=== PATIENT | female | born 1960 | race Caucasian/White ===

== ENCOUNTER 2017-06-14 12:36 | Day surgery (SDC) | payer BC ==
[~2017-06-14] VITALS: Ht 157.5 cm; Wt 96.2 kg
[~2017-06-14 12:36] MED LIST: AMITRIPTYLIN50 MG PO; BUT/APAP/CAF PO; LISINOP/HCTZ1 TA2 PO; PANTOPRAZOLE SO40 M1 PO; PRILOSEC20 MG PO; SUPER B COM2 PO; VITAMIN D3400 UNI2 PO
[2017-06-14 17:51] VITALS: BP 131/74
== END 2017-06-14 16:19 | disposition home or self-care (01) | DRG 391 ==
LOC: ENDO 12:36 → ORM 13:45 → ENDO 13:45 → ORM 15:45 → ENDO 15:45
PROVIDERS: ATTEND Internal Medicine Gastroenterology
PROC: 0DB48ZX Excision of Esophagogastric Junction, Via Natural or Artificial Opening Endoscopic, Diagnostic (ICD-10-PCS; principal; 2017-06-14)
PROC: 0DB68ZX Excision of Stomach, Via Natural or Artificial Opening Endoscopic, Diagnostic (ICD-10-PCS; 2017-06-14)
PROC: 0DB58ZX Excision of Esophagus, Via Natural or Artificial Opening Endoscopic, Diagnostic (ICD-10-PCS; 2017-06-14)
PROC: 0D758ZZ Dilation of Esophagus, Via Natural or Artificial Opening Endoscopic (ICD-10-PCS; 2017-06-14)
DX: K21.0 Gastro-esophageal reflux disease with esophagitis (principal); K29.71 Gastritis, unspecified, with bleeding; K22.2 Esophageal obstruction; K22.8 Other specified diseases of esophagus; K31.7 Polyp of stomach and duodenum; I10 Essential (primary) hypertension; F32.9 Major depressive disorder, single episode, unspecified; K44.9 Diaphragmatic hernia without obstruction or gangrene

== ENCOUNTER 2021-02-09 07:44 | Day surgery (SDC) | payer MEDICARE, MEDICAID ==
[~2021-02-09] VITALS: Ht 160 cm; Wt 109.8 kg
[~2021-02-09 07:44] MED LIST changes: +ACETAMINOPHEN500 M1 PO; +ALBUTEROL SUL0.083 % IN; +ALPRAZOLAM0.25 MG PO; +BACLOFEN10 MG PO; +BENZONATATE200 MG PO; +CRESTOR5 M1; +FAMOTIDINE20 M1 PO; +KETOCONAZOLE2 % EX; +METAMUCIL0.36 GM; +SENNA-TABS8.6 MG PO; +SERTRALINE25 MG PO; +SPIRIVA RE1.25 MCG/A IN; +ZANTAC 150 PO
[2021-02-09 09:55] VITALS: BP 140/66
== END 2021-02-09 10:50 | disposition home or self-care (01) ==
LOC: ENDO 07:44 → ORM 08:00 → ENDO 10:50
PROVIDERS: ATTEND Surgery
PROC: 0DJD8ZZ Inspection of Lower Intestinal Tract, Via Natural or Artificial Opening Endoscopic (ICD-10-PCS; principal; 2021-02-09)
PROC: 0DJ08ZZ Inspection of Upper Intestinal Tract, Via Natural or Artificial Opening Endoscopic (ICD-10-PCS; 2021-02-09)
DX: Z12.11 Encounter for screening for malignant neoplasm of colon (principal); K57.30 Diverticulosis of large intestine without perforation or abscess without bleeding; K21.00 Gastro-esophageal reflux disease with esophagitis, without bleeding; K44.9 Diaphragmatic hernia without obstruction or gangrene; I10 Essential (primary) hypertension; G80.9 Cerebral palsy, unspecified
CPT/HCPCS: 43235; G0121

== ENCOUNTER 2021-03-09 09:31 | Observation (INO) | payer MEDICARE, MEDICAID ==
[2021-03-09] VITALS (8 sets, daily range): BP systolic 107–137; BP diastolic 53–71
[~2021-03-09] VITALS: Ht 157.5 cm; Wt 108.9 kg
[~2021-03-09 09:31] MED LIST changes: +AMITRIPTYLINE H75 M1 PO; +AMLODIPINE BESY10 MG PO; +DOK100 MG PO; +EZALLOR SPRINKLE5 MG PO; +LISINOP/HCTZ1 TAB PO; +METAMUCIL0.52 G2 PO; +VITAMIN B COMPL1 TAB PO
[2021-03-09] MEDS ORDERED: SYMBICORT1 AE1 IN (10:46)
[2021-03-09 16:35] LABS: HEMATOCRIT 38.5 % (37.0-47.0); HEMOGLOBIN 12.7 g/dl (12.0-16.0); IMMATURE GRANULOCYTES 0.1 % (0.0-5.0); MEAN CELL VOLUME 94.8 fL CALC (80.0-100.0); MEAN CORPUSCULAR HGB 31.3 pG CALC (26.0-32.0); NEUT# 12.95 thou/uL (2.00-7.15); RED BLOOD COUNT 4.06 mill/uL (4.20-5.60); RED CELL DISTRI WIDTH 13.6 % (11.5-15.5)
[2021-03-09 16:41] LABS: ANION GAP 7 (6-22 (CALC)); BUN 10 mg/dL (8-23); BUN/CREATININE RATIO 13 (12-20 (CALC)); CARBON DIOXIDE 30 mmol/l (22-30); CHLORIDE 103 mmol/l (95-108); CREATININE 0.8 mg/dL (0.5-1.0); GFR > 60 ML/MIN (>=60 (CALC)); GFR FOR AFR.AMER. > 60 ML/MIN (>=60 (CALC)); POTASSIUM 3.4 mmol/l (3.5-5.1); SODIUM 137 mmol/l (137-146)
[2021-03-10] VITALS: BP 79/47
[2021-03-10 04:00] VITALS: BP 113/69
[2021-03-10 07:12] VITALS: BP 106/63
[2021-03-10 15:14] VITALS: BP 108/52
[2021-03-10 19:00] VITALS: BP 127/68
[2021-03-11 04:00] VITALS: BP 137/70
[2021-03-11 07:30] VITALS: BP 138/75
[2021-03-11 08:24] VITALS: BP 138/75
[2021-03-11] MEDS ORDERED: TRAMADOL HCL50 MG PO (10:27)
== END 2021-03-11 12:30 ==
LOC: ORM 09:31 → MS2 13:18
PROVIDERS: Nurse Practitioner; ADMIT Surgery; ATTEND Internal Medicine
PROC: 0DV44ZZ Restriction of Esophagogastric Junction, Percutaneous Endoscopic Approach (ICD-10-PCS; principal; 2021-03-09)
PROC: 0BQT4ZZ Repair Diaphragm, Percutaneous Endoscopic Approach (ICD-10-PCS; 2021-03-09)
DX: K44.9 Diaphragmatic hernia without obstruction or gangrene (principal); M79.5 Residual foreign body in soft tissue; I10 Essential (primary) hypertension; G80.9 Cerebral palsy, unspecified; K21.9 Gastro-esophageal reflux disease without esophagitis; R41.3 Other amnesia; F32.A Depression, unspecified; E78.2 Mixed hyperlipidemia; E66.01 Morbid (severe) obesity due to excess calories; Z68.41 Body mass index [BMI] 40.0-44.9, adult
CPT/HCPCS: J1650; J2710

== ENCOUNTER 2021-03-28 18:34 | Observation (INO) | payer MEDICARE, MEDICAID ==
[~2021-03-28] VITALS: Ht 157.5 cm; Wt 107.1 kg
[~2021-03-28 18:34] MED LIST changes: +SYMBICORT1 AE1 IN; +TRAMADOL HCL50 MG PO
[2021-03-28 19:07] LABS: HEMATOCRIT 40.2 % (37.0-47.0); HEMOGLOBIN 13.3 g/dl (12.0-16.0); IMMATURE GRANULOCYTES 0.1 % (0.0-5.0); MEAN CELL VOLUME 93.5 fL CALC (80.0-100.0); MEAN CORPUSCULAR HGB 30.9 pG CALC (26.0-32.0); MEAN CORPUSCULAR HGB CONC 33.1 g/dL CAL (32.0-36.0); NEUT# 3.41 thou/uL (2.00-7.15); RED BLOOD COUNT 4.3 mill/uL (4.20-5.60); RED CELL DISTRI WIDTH 13.7 % (11.5-15.5)
[2021-03-28 19:17] LABS: ALKALINE PHOSPHATASE 86 u/l (38-126); AMYLASE 53 u/l (30-110); ANION GAP 10 (6-22 (CALC)); BILIRUBIN, TOTAL 0.5 mg/dL (0.0-1.4); BUN 16 mg/dL (8-23); BUN/CREATININE RATIO 15 (12-20 (CALC)); CARBON DIOXIDE 29 mmol/l (22-30); CHLORIDE 101 mmol/l (95-108); GFR 56 ML/MIN (>=60 (CALC)); GFR FOR AFR.AMER. > 60 ML/MIN (>=60 (CALC)); LIPASE 55 u/l (23-300); POTASSIUM 3.3 mmol/l (3.5-5.1); SGOT/AST 35 u/l (9-36); SODIUM 137 mmol/l (137-146); TOTAL PROTEIN 6.9 g/dL (6.3-8.2)
[2021-03-28 19:29] LABS: MYOGLOBIN 31 ng/mL (0 - 62)
[2021-03-28 20:15] LABS: URINE BILIRUBIN - DIPSTICK NEGATIVE (NEGATIVE); URINE BLOOD DIPSTICK NEGATIVE (NEGATIVE); URINE COLOR YELLOW; URINE GLUCOSE - DIPSTICK NEGATIVE (NEGATIVE); URINE KETONE NEGATIVE (NEGATIVE); URINE LEUK ESTERASE TRACE (NEGATIVE); URINE PH 5.5 (4.5-8.0); URINE PROTEIN - DIPSTICK NEGATIVE (NEG-TRACE); URINE SPECIFIC GRAVITY >=1.030; URINE UROBILINOGEN - DIPSTICK 0.2 E.U./dL (0.2)
[2021-03-28 20:17] LABS: URINE NITRITE - DIPSTICK NEGATIVE (Negative)
[2021-03-28 21:30] VITALS: BP 112/68
[2021-03-29] VITALS: BP 108/59
[2021-03-29 04:00] VITALS: BP 112/70
[2021-03-29 06:14] LABS: ANION GAP 9 (6-22 (CALC)); BUN 13 mg/dL (8-23); BUN/CREATININE RATIO 15 (12-20 (CALC)); CALCULATED LDLCHOLESTEROL 56 mg/dL (62-129 (CALC)); CARBON DIOXIDE 28 mmol/l (22-30); CHLORIDE 104 mmol/l (95-108); CREATININE 0.9 mg/dL (0.5-1.0); GFR > 60 ML/MIN (>=60 (CALC)); GFR FOR AFR.AMER. > 60 ML/MIN (>=60 (CALC)); HDL CHOLESTEROL 42 mg/dL (>=40); MAGNESIUM 2.2 mg/dL (1.6-2.3); POTASSIUM 3.3 mmol/l (3.5-5.1); SODIUM 138 mmol/l (137-146); TOTAL CHOLESTEROL 127 mg/dl (0-199); TOTAL TRIGLYCERIDES 142 mg/dl (30-149); VLDL CHOLESTROL 28 mg/dl (1-41 (CALC))
[2021-03-29 06:15] LABS: HEMATOCRIT 37.8 % (37.0-47.0); HEMOGLOBIN 12.7 g/dl (12.0-16.0); MEAN CELL VOLUME 92.6 fL CALC (80.0-100.0); MEAN CORPUSCULAR HGB 31.1 pG CALC (26.0-32.0); MEAN CORPUSCULAR HGB CONC 33.6 g/dL CAL (32.0-36.0); RED BLOOD COUNT 4.08 mill/uL (4.20-5.60); RED CELL DISTRI WIDTH 13.5 % (11.5-15.5)
[2021-03-29] MEDS ORDERED: CRESTOR5 M1 PO (07:13)
[2021-03-29 08:18] VITALS: BP 115/71
[2021-03-29 10:29] VITALS: BP 118/71
[2021-03-29 14:15] VITALS: BP 118/71
== END 2021-03-29 12:53 ==
LOC: ED 18:34 → MS2 20:27
PROVIDERS: Family Medicine; ADMIT Hospitalist; ATTEND Hospitalist
DX: R07.9 Chest pain, unspecified (principal); R11.2 Nausea with vomiting, unspecified; I10 Essential (primary) hypertension; G80.9 Cerebral palsy, unspecified; K21.9 Gastro-esophageal reflux disease without esophagitis; K44.9 Diaphragmatic hernia without obstruction or gangrene; F32.A Depression, unspecified; E78.2 Mixed hyperlipidemia; E66.01 Morbid (severe) obesity due to excess calories; Z68.41 Body mass index [BMI] 40.0-44.9, adult; Z20.822 Contact with and (suspected) exposure to COVID-19

== ENCOUNTER 2021-10-21 10:24 | Emergency (ER) | payer MEDICARE, MEDICAID ==
[~2021-10-21] VITALS: Ht 157.5 cm; Wt 115.0 kg
[~2021-10-21 10:24] MED LIST changes: +CRESTOR5 M1 PO
[2021-10-21 10:34] VITALS: BP 143/78
[2021-10-21 10:46] VITALS: BP 88/72
[2021-10-21 10:48] VITALS: BP 123/64
[2021-10-21 12:12] VITALS: BP 115/66
[2021-10-21 12:30] VITALS: BP 110/67
[2021-10-21 12:39] VITALS: BP 110/67
== END 2021-10-21 12:48 | disposition home or self-care (01) ==
LOC: ED 10:24
DX: S06.0X0A Concussion without loss of consciousness, initial encounter (principal); S00.93XA Contusion of unspecified part of head, initial encounter; S80.01XA Contusion of right knee, initial encounter; M25.511 Pain in right shoulder; M25.521 Pain in right elbow; G93.0 Cerebral cysts; I10 Essential (primary) hypertension; E66.01 Morbid (severe) obesity due to excess calories; G80.9 Cerebral palsy, unspecified; W18.39XA Other fall on same level, initial encounter; Y92.099 Unspecified place in other non-institutional residence as the place of occurrence of the external cause